=== PATIENT | female | born 1950 | race Asian ===

== ENCOUNTER 2021-03-02 13:26 | Emergency (ER) | payer OTHER ==
[~2021-03-02] VITALS: Ht 162.6 cm; Wt 58.5 kg
[2021-03-02 13:59] LABS: PLATELET COUNT 164 K/uL (152-353)
[2021-03-02 14:03] LABS: POTASSIUM 3.7 mmol/L (3.6-5.2)
[2021-03-02 16:00] VITALS: BP 199/97; TEMP 99.2
== END 2021-03-02 16:00 | disposition home or self-care (01) ==
LOC: ED 13:26
PROVIDERS: Hospitalist
DX: R19.7 Diarrhea, unspecified (principal); R11.2 Nausea with vomiting, unspecified; A05.9 Bacterial foodborne intoxication, unspecified
CPT/HCPCS: 36415; 80053; 80320; 81000; 83690; 85027; 96360; 96365; 96366; 96375; 99284; J1956; J2405

== ENCOUNTER 2021-05-02 08:54 | Emergency (ER) | payer OTHER ==
[~2021-05-02] VITALS: Ht 162.6 cm; Wt 58.5 kg
[2021-05-02 08:54] VITALS: TEMP 97.3
[2021-05-02 10:08] LABS: PLATELET COUNT 154 K/uL (152-353)
[2021-05-02 10:22] LABS: PARTIAL THROMBOPLASTIN TIME 23.6 SECONDS (24.5-33.6)
[2021-05-02 14:01] VITALS: BP 167/73
== END 2021-05-02 14:23 | disposition short-term general hospital (02) ==
LOC: ED 08:54
PROVIDERS: Hospitalist
PROC: 0T9B70Z Drainage of Bladder with Drainage Device, Via Natural or Artificial Opening (ICD-10-PCS; principal; 2021-05-02)
DX: I21.4 Non-ST elevation (NSTEMI) myocardial infarction (principal); I63.89 Other cerebral infarction; E11.65 Type 2 diabetes mellitus with hyperglycemia; Z11.52 Encounter for screening for COVID-19; I10 Essential (primary) hypertension
CPT/HCPCS: 36600; 51702; 80053; 80320; 81000; 81002; 82550; 82805; 82948; 83880; 84484; 85027; 85610; 85730; 87635; 93005; 96360; 96361; 96365; 96372; 96375; 99284; J0360; J0696; J1650; J1815; J1953; J2060; U0003